=== PATIENT | male | born 1995 | race Caucasian/White ===

== ENCOUNTER 2021-08-19 20:50 | Emergency (ER) | payer MEDICAID ==
[2021-08-19 23:09] LABS: HEMOGLOBIN 16.7 gm/dl (14.0-17.5); RED BLOOD COUNT 5.8 M/UL (4.20-5.50); WHITE BLOOD COUNT 10.6 K/UL (4.5-11.0)
[2021-08-20 00:13] LABS: BUN/CREATININE RATIO 13 (0-10)
[2021-08-20] MEDS ORDERED: OMEPRAZOLE20 M1 PO (03:05)
[2021-08-20] MEDS ORDERED: CARAFATE1 GM PO (03:05)
== END 2021-08-20 03:07 | disposition home or self-care (01) ==
LOC: ER1 20:50
PROVIDERS: Physician Assistant
DX: K29.70 Gastritis, unspecified, without bleeding (principal)
CPT/HCPCS: 71045; 80053; 82550; 82553; 83874; 84484; 85025; 93005; 99285

== ENCOUNTER 2021-08-26 15:07 | Emergency (ER) | payer OTHER ==
[~2021-08-26 15:07] MED LIST: CARAFATE1 GM PO; OMEPRAZOLE20 M1 PO
[2021-08-26 16:44] LABS: HEMOGLOBIN 17.5 gm/dl (14.0-17.5); RED BLOOD COUNT 5.9 M/UL (4.20-5.50); WHITE BLOOD COUNT 10.2 K/UL (4.5-11.0)
[2021-08-26 17:17] LABS: BUN/CREATININE RATIO 12 (0-10)
== END 2021-08-26 21:18 | disposition home or self-care (01) ==
LOC: ER1 15:07
PROVIDERS: Physician Assistant Medical
DX: R20.2 Paresthesia of skin (principal); M50.223 Other cervical disc displacement at C6-C7 level
CPT/HCPCS: 70450; 72040; 72125; 80053; 85025; 85652; 86140; 99284